=== PATIENT | male | born 1990 | race Caucasian/White ===

== ENCOUNTER → 2017-12-03 | Outpatient (CLI) | payer OTHER ==
[~2017-12-03] MED LIST: FLOMAX0.4 MG PO; HYDROCODONE-AP1 EAC6 PO; NAPROSYN500 MG PO
== END | disposition home or self-care (01) ==
LOC: LITH 08:01
DX: N20.1 Calculus of ureter (principal); G43.909 Migraine, unspecified, not intractable, without status migrainosus